=== PATIENT | female | born 1955 | race Caucasian/White ===

== ENCOUNTER → 2016-11-12 | Outpatient (CLI) | payer BC, OTHER ==
[~2016-11-12] MED LIST: CALCIUM 600-D 61 TAB PO; CARDURA 1MG TAB1 MG NG; CIPRO 750MG TA750 MG PO; CO Q-1050 MG PO; EXFORGE 5 MG-321 TAB PO; FENOFIBRATE145 MG PO; FLAGYL ER750 MG PO; GRALISE600 M1 PO; HYDROXYCHLOROQ200 MG PO; LIDODERM 5% PA1 EACH TD; MAXZIDE 25 MG-31 TAB PO; METOPROLOL25 MG PO; MULTIVITAMIN1 TA1 PO; OMEPRAZOLE40 MG PO; SAVELLA50 MG PO; TRAMADOL HYDRO200 MG PO; ULTRACET 325 MG1 TAB PO; VALACYCLOVIR1 GM PO; VITAMIN D1 TAB PO; Zofran4 MG PO
--- NOTE | 2016-11-12 17:20 | RADIOLOGY REPORT PS360 ---
PROCEDURE: 2-D M-mode and color Doppler study INDICATIONS FOR THE TEST: Chest pain COPD Heart MurmurX Tobacco Smoking Palpitations Fatigue Syncope EdemaX HypertensionXDiabetes Mellitus Rheumatic Fever SOBXDOEXObesityXHyperlipidemiaX Family History HD Additional History PATIENT INFORMATION HEIGHT: 61 WEIGHT:198 GENDER: Female B/P:120/80 2-D/M-MODE INTERPRETATION: 2-D MEASUREMENTS OBSERVED VALUES IN CMS Right Ventricular Dimension (RVDd) 2.3 Interventricular Septum (Thickness)(IVsd) 1.4 Left Ventricular Internal Dimensions(LVIDd) 3.3 Left Ventricular Posterior Wall (Thickness)(LVPWd) 1.2 Aortic Root 3.2 Aortic Cusp Separation 2.0 Left Atrial Dimensions (LAD) 3.1 2D 1. Left atrium is mildly enlarged, left ventricle is normal size, there is mild concentric left ventricular hypertrophy present, visually estimated ejection fraction of 55-60% with no obvious regional wall motion abnormality. 2. The right atrium and right ventricle are normal size and contractility. 3. The aortic valve is minimally thickened and fibrosed. 4. The mitral valve leaflets are minimally thickened. 5. The tricuspid valve is structurally normal. 6. The pulmonic valve is not well visualized. 7. No significant pericardial effusion noted. DOPPLER INTERROGATION: Doppler interrogation of the aortic mitral and tricuspid valve reveals presence of mild mitral and tricuspid regurgitation, tricuspid regurgitant jet velocity insufficient for calculation of the right ventricular systolic pressure, grade 1 diastolic dysfunction seen without tissue Doppler evidence of raised left atrial pressure. CONCLUSION: 1. Mildly enlarged left atrium, normal left ventricular size, mild concentric left ventricular hypertrophy, visually estimated ejection fraction 55-60% with no obvious regional wall motion abnormality, grade 1 diastolic dysfunction seen without tissue Doppler evidence of raised left atrial pressure. 2. Mild mitral and tricuspid regurgitation. 3. No significant pericardial effusion noted.
== END ==
LOC: RT 08:41
DX: R01.1 Cardiac murmur, unspecified (principal)

== ENCOUNTER → 2016-11-26 | Outpatient (CLI) | payer BC, OTHER ==
--- NOTE | 2016-11-26 10:23 | RADIOLOGY REPORT PS360 ---
US RUQ-(ABD LTD)1ORGAN/QUAD/FU HISTORY: ELEVATED LIVER ENZYMES ORDERING PHYSICIAN: Harriet Lozano MD PATIENT AGE: 61 years COMPARISON: None FINDINGS: PANCREAS:Unremarkable. No obvious mass or abnormal fluid collection. No ductal dilatation LIVER:No focal liver lesions demonstrated. Homogeneous echogenicity. No intrahepatic biliary ductal dilatation evident RIGHT KIDNEY:There is mild dilatation of the right renal collecting system. Gallbladder: No stones, wall thickening, pericholecystic fluid, or biliary dilatation is evident. IMPRESSION: 1. Negative gallbladder ultrasound. 2. Minimal ectasia of the right renal collecting system
== END ==
LOC: RAD 08:13
DX: R74.8 Abnormal levels of other serum enzymes (principal)

== ENCOUNTER → 2017-02-06 | Outpatient (CLI) | payer BC, OTHER ==
--- NOTE | 2017-02-06 14:43 | RADIOLOGY REPORT PS360 ---
[id number] (THUMB)-3 VIEWS HISTORY: RT WRIST PAIN,RT THUMB PAIN ORDERING PHYSICIAN: JEMMA Coto PATIENT AGE: 61 years COMPARISON: None FINDINGS: Severe osteoarthritic changes are present at the interphalangeal joint of the from The PIP and DIPs of the fourth through fifth fingers have a gullwing appearance consistent with erosive osteoarthritic changes. Differential diagnosis includes psoriatic arthritis. There is mild ulnar deviation of the distal phalanges. Osteoarthritic changes are also present at the first metacarpocarpal joint. There is mild soft tissue swelling at the T appendectomy of the second third digits IMPRESSION: Osteoarthritic change of the abdominal at the interphalangeal joint and metacarpal carpal joint. 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
--- NOTE | 2017-02-06 14:45 | RADIOLOGY REPORT PS360 ---
WRIST-3 VIEWS-LT HISTORY: RT WRIST PAIN,RT THUMB PAIN ORDERING PHYSICIAN: JEMMA Coto PATIENT AGE: 61 years COMPARISON: None FINDINGS: Severe osteoarthritic changes are present at the first metacarpocarpal joint with mild lateral subluxation of the first metacarpal by approximately 6 mm. No fracture or dislocation. Hypertrophic changes present along the dorsal aspect of the wrist on the lateral view. 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
== END ==
LOC: RAD 13:49
DX: M25.531 Pain in right wrist (principal); M79.644 Pain in right finger(s)